=== PATIENT | male | born 2000 | race African-American/Black ===

== ENCOUNTER 2025-06-25 10:25 | Emergency (ER) | payer OTHER ==
[~2025-06-25] VITALS: Ht 182.9 cm; Wt 110.0 kg
[2025-06-25] MEDS ORDERED: ACET-897 PO (10:34)
[2025-06-25 12:42] VITALS: BP 144/79; TEMP 97.6; O2SAT 98
[2025-06-25] MEDS ORDERED: NAPR-837 PO (12:59)
== END 2025-06-25 13:08 | disposition home or self-care (01) ==
LOC: M ED 10:25
DX: S83.92XA Sprain of unspecified site of left knee, initial encounter (principal); W01.198A Fall on same level from slipping, tripping and stumbling with subsequent striking against other object, initial encounter; Y92.89 Other specified places as the place of occurrence of the external cause; Y93.89 Activity, other specified; Y99.1 Military activity; Z79.1 Long term (current) use of non-steroidal anti-inflammatories (NSAID)